=== PATIENT | female | born 1990 | race African-American/Black ===

== ENCOUNTER 2018-02-15 02:34 | Emergency (ER) | payer OTHER, SELFPAY ==
[2018-02-15] MEDS ORDERED: Metoclopramide HCl 10 MG/2 ML VIAL ONE (04:29)
[2018-02-15] MEDS ORDERED: diphenhydrAMINE 50 MG/ML VIAL ONE (04:29)
[2018-02-15] MEDS ORDERED: Ketorolac Tromethamine 30 MG/ML VIAL ONE (04:29)
== END 2018-02-15 05:30 | disposition home or self-care (01) ==
LOC: ERS 02:34
DX: R51 Headache (principal)
CPT/HCPCS: 93005; 96361; 96374; 96375; J1200; J1885; J2765

== ENCOUNTER 2021-06-22 23:31 | Emergency (ER) | payer SELFPAY ==
[2021-06-23] MEDS ORDERED: Acetaminophen 500 MG TAB ONE (00:14)
== END 2021-06-23 00:40 | disposition home or self-care (01) ==
LOC: ERS 23:31
DX: R55 Syncope and collapse (principal); R51.9 Headache, unspecified
CPT/HCPCS: 93005